=== PATIENT | female | born 2000 | race Caucasian/White ===

== ENCOUNTER 2025-03-18 01:19 | Day surgery (SDC) | payer OTHER, SELFPAY ==
[2025-03-10 15:18] VITALS: BMI 23.8
--- OUTSIDE RECORDS SUMMARY | 2025-03-18 01:22 | XMS_ITS | Referral Summary ---
Author Organization [facility] Address [address] [place] [address] Care Team Providers Care Pen Tester Name Role Phone Percy Sims MD Primary Care Prov ider Allergies No known active allergies Medications norethindrone-e.est radiol-iron (, ORAL) 9 Active ondansetron ODT (ZOFRAN-ODT) 4 mg disintegrating tabletIndications:Rina ibrahim,Gastroenterit is Take 1 tablet (4 mg total) by mouth every 6 (six) hours as needed for nausea or vomiting 20 tablet 1 1 Active Active Problems Problem Noted Date Diagnosed Date UTI (urinary tract infection) 10/09/2022 Assessment & Plan (10/09/2022 11:[address] OPENINGS INSPECTOR): Due to limitations with virtual visit physical assessment and labs deferred at this time. Pt was advised increase fluids, genital hygiene, and frequent voiding to assist with clearance of infection. Prescribed macrobid She was advised of side effects, dosage, and use of antibiotics. Will send prescription for macrobid to patient pharmacy. Instructed to patient on risk and benefits of medication. All red flags reviewed. Patient should follow up with PCP or report to ED for any worsening symptoms. Patient verbalized understanding and agreed to plan of care at this time. Dysmenorrhea 01/07/2019 Immunizations Immunization Administration Dates Next Due DTaP 01/22/2006, 1,03/18/2001,01/21 Hep A, Pediatric 05/05/2010,01/22/2006 Hep B / HiB 05/20/2001,01/21/2001 Hep B, Adolescent or Pediatric 2000 HiB 03/18/2001 IPV 01/22/2006, 1,03/18/2001,01/21 Influenza, Live, Intranasal, Quadrivalent 08/26/2013 Influenza, Quadrivalent, Spl it, Preservative Free, Intramuscular 07/10/2020,10/11/2019 MMR 01/22/2006,11/13/2001 Pneumococcal Conjugate 7-Valent 11/13/2001 Tdap 04/18/2012 Varicella 05/05/2010,11/13/2001 Social History Tobacco Use Types Packs/Day Years Used Date Smoking Tobacco: Never Smokeless Tobacco: Never Alcohol Use Standard Drinks/Week Comments Not Currently 0 (1 standard drink = 0.6 oz pur e alcohol) AUDIT-C Answer Date Recorded Q1: How often do you have a drink containing alc ohol? 2-4 times a month 04/02/2022 Q2: How many drinks containi ng alcohol do you have on a typical day when you are drinking? 3 or 4 04/02/2022 Q3: How often do you have si x or more drinks on one occasion? Never 04/02/2022 PHQ-2 Answer Date Recorded PHQ-2 Total Score (If total score is 3 or more points, staff should administer the PHQ-9) 0 09/12/2020 Personal Safety Answer Date Recorded Getting School Help Needed Not on file 11/13 Comments Unknown Sex and Gender Information Value Date Recorded Sex Assigned at Not on file Legal Sex Female 10:[address] OPENINGS INSPECTOR Gender Identity Not on file Sexual Orientation Not on file Last Filed Vital Signs Vital Sign Reading Time Taken Comments Blood Pressure 128/70 10/24/2022 9:[address] OPENINGS INSPECTOR Pulse 74 10/24/2022 9:[address] OPENINGS INSPECTOR Temperature 36.6 C (97.9 F) 10/24/2022 9:[address] OPENINGS INSPECTOR Respiratory Rate 14 10/24/2022 9:[address] OPENINGS INSPECTOR Oxygen Saturation 100% 10/24/2022 9:[address] OPENINGS INSPECTOR Inhaled Oxygen Concentration - - Weight 74.8 kg (165 lb) 10/24/2022 9:[address] OPENINGS INSPECTOR Height 182.9 cm (6') 10/24/2022 9:[address] OPENINGS INSPECTOR Body Mass Index 22.38 10/24/2022 9:[address] OPENINGS INSPECTOR Plan of Treatment Not on file Procedures Procedure Name Priority Date/Time Associated Diagnosis Comments HEPATITIS C ANTIBODY Routine 09/12/2020 1:50 PM CDT Annual physical exam from Last 3 Months or Most Recently Relevant to Health Maintenance Results * Hepatitis C antibody (09/12/2020 1:50 PM CDT) Hep C Ab Nonreactive Nonreactive [facility] Comment: Interpretive Data Nonreactive: Antibodies to HCV not detected. Does NOT exclude the possibility of recent exposure to HCV. Equivocal: Equivocal for HCV antibodies. Supplemental molecular testing will be automatically performed to determine infection status in accordance with current CDC screening recommendations. Reactive: Positive for HCV antibodies. This may represent current or past HCV infection. Supplemental molecular testing will be automatically performed to determine current infection status in accordance with current CDC screening recommendations. Interpretive data was last revised on 2020. Blood specimen (specimen) 09/12/2020 1:50 PM CDT 09/12/2020 3:22 PM CDT Percy Sims MD LAB MICROBIOLOGY - GENERAL ORDERABLES Final Result [facility] [address] Department [place] [address] from Last 3 Months or Most Recently Relevant to Health Maintenance Insurance [facility] [facility] PPO AETNA COVENTRY PPO [employer]ENTRY PPO [facility] Care Teams Pen Tester Relationship Specialty Start Date End Date Percy Sims MD PCP - General Family Medicine 09/12/20
--- OUTSIDE RECORDS SUMMARY | 2025-03-18 01:22 | XMS_ITS | Clinical Summary ---
Author Organization [facility] Address [address] [place] [address] Care Team Providers Care Vp Genetic Name Role Phone Francisco Grove MD Primary Care Provider [phone] Source Comments [facility] and Associated Physician Practices is amultiple site organization consisting of ambulatory clinics and hospital sitesin [place], [place], [place] and [place]. This disclosure is being madepursuant to the Care Everywhere program and may not contain all information available regarding this patient. Last updated 18.[facility] Social History Tobacco Use Types Packs/Day Years Used Date Smoking Tobacco: Never Assessed Comments Unknown Sex and Gender Information Value Date Recorded Sex Assigned at Not on file Legal Sex Female 10:22 AM CDT Gender Identity Not on file Sexual Orientation Not on file Plan of Treatment Upcoming Encounters Date Type Department Care Team (Late st Contact Info) Description 04/28/2025 11:00 AM CDT Office Visit [facility] [address], [address] [place] [address] Judi Griggs, [address] [place] [address] Health Maintenance Due Date Last Done Comments PAP SMEAR 2000 HIV SCREENING 2015 HPV VACCINE (1 - 3-dose series) 2015 CHLAMYDIA/GONORRHEA SCREENING 2016 HEPATITIS C SCREENING 11/03/2018 DTAP/TDAP/TD VACCINES (1 - Tdap) 2019 HEPATITIS B VACCINE (1 of 3 - 19+ 3-dose series) 2019 COVID-19 VACCINE (3 - 2023-2 5 season) 2024 03/01/2021, 02/08/2021 DEPRESSION SCREENING 11/18/2024 INFLUENZA VACCINE (Season Ended) 2025 07/10/2020, 10/11/2019, 08/26/2013 ZOSTER VACCINE (1 of 2) 2050 HIB VACCINE Aged Out No longer eligi ble based on patient's age to complete this topic MENINGOCOCCAL (Group B) VACCINE SHARED DECISION-MAKING Aged Out No longer eligible based on patient's age to complete this topic MENINGOCOCCAL GROUPS A/C/Y/W VACCINE Aged Out No longer eligible b ased on patient's age to complete this topic PNEUMOCOCCAL VACCINE Aged Out No long er eligible based on patient's age to complete this topic Care Teams Vp Genetic Relationship Specialty Start Date End Date Francisco Grove MD [address] [address] PCP - General Internal Medicine 12/31/24
--- OUTSIDE RECORDS SUMMARY | 2025-03-18 01:22 | XMS_ITS | Clinical Summary ---
Author Organization [address] Address [address] [place] [address] [place] [address] Care Team Providers Care Agronomy Technician Name Role Phone Nelia Cevallos MD Primary Care Provider [phone] Allergies No known active allergies Medications nystatin-triam cinolone (MYCOLOG) 100,000-0.1 unit/gram-% Ointment Apply to affected area 2 times daily. 60 Gram 4 Active buPROPion HCL (WELLBUTRIN XL) 150 mg Extended Release 24 hour tablet Take 150 mg by mouth daily in the morning. 4 Active escitalopram oxalate (LEXAPRO) 10 mg tablet TAKE 1 TABLET (10 MG) BY MOUTH DAILY. 90 Tablet 5 Active escitalopram oxalate (LEXAPRO) 10 mg tablet TAKE 1 TABLET (10 MG) BY MOUTH DAILY. 90 Tablet 4 025 Discontinued Active Problems Problem Noted Date Diagnosed Date Dysmenorrhea 01/07/2019 Encounters Date Type Department Care Team Description 03/02/2025 External Device Data ST[facility] ABSTRACTION Provider, Abstract 02/23/2025 Refill [facility] PRODUCT ANALYST - [address] [address] Nelia Cevallos MD 02/03/2025 External Device Data [facility] ABSTRACTION Provider, Abstract 02/03/2025 External Device Data [facility] ABSTRACTION Provider, Abstract 01/23/2025 External Device Data [facility] ABSTRACTION Provider, Abstract 01/22/2025 External Device Data [facility] ABSTRACTION Provider, Abstract 01/19/2025 External Device Data [facility] ABSTRACTION Provider, Abstract 01/05/2025 External Device Data [facility] ABSTRACTION Provider, Abstract from Last 3 Months Immunizations Immunization Administration Dates Next Due (TDVAX)(7 YRS UP) TETANUS AN D DIPHTHERIA TOXOIDS, ADSORBED (2 LF OF TETANUS TOXOID AND 2 LF OF DIPHTHERIA TOXOID), 0.5ML (PF), IM 06/06/2022 Family History Medical History Relation Name Comments Healthy Brother Healthy Father Healthy Mother Hypertension Paternal Grandmother Relation Name Status Comments Brother Alive Father Alive Mother Alive Paternal Grandmother Social History Tobacco Use Types Packs/Day Years Used Date Smoking Tobacco: Never Smokeless Tobacco: Never Tobacco Cessation:Counseling Given: Not Answered Alcohol Use Standard Drinks/Week Comments No 0 (1 standard drink = 0.6 oz pur e alcohol) Comments No Sex and Gender Information Value Date Recorded Sex Assigned at Not on file Legal Sex Female 10:04 PM CDT Gender Identity Not on file Sexual Orientation Not on file Last Filed Vital Signs Vital Sign Reading Time Taken Comments Blood Pressure 126/70 12/03/2024 11:14 AM HEALTH CARE CONSULTANT Pulse 69 12/03/2024 11:14 AM HEALTH CARE CONSULTANT Temperature 35.6 C (96 F) 12/03/2024 11:14 AM HEALTH CARE CONSULTANT Respiratory Rate - - Oxygen Saturation 99% 12/03/2024 11:14 AM HEALTH CARE CONSULTANT Inhaled Oxygen Concentration - - Weight 81.9 kg (180 lb 9.6 oz) 12/03/2024 11:14 AM HEALTH CARE CONSULTANT Height 182.9 cm (6') 12/03/2024 11:14 AM HEALTH CARE CONSULTANT Body Mass Index 24.49 12/03/2024 11:14 AM HEALTH CARE CONSULTANT Plan of Treatment Upcoming Encounters Date Type Department Care Team (Late st Contact Info) Description 12/06/2025 2:45 PM HEALTH CARE CONSULTANT Office Visit [facility] PRODUCT ANALYST - [address] [address] Nelia Cevallos MD [address] [address] Health Maintenance Due Date Last Done Comments HPV VACCINES (1 - 3-dose series) 2015 HPV/Cotest (21-29) 2021 INFLUENZA VACCINE (#1) 2024 , 07/10/2020, 10/11/2019, Additional history exists CERVICAL CANCER SCREENING 10/25/2025 PAP SMEAR 10/25/2025 10/25/2022 DTAP/TDAP/TD VACCINES (7 - T d or Tdap) 06/06/2032 06/06/2022, 04/18/2012, 01/22/2006, Additional history exists HEPATITIS B VACCINES Completed 05/20/2001, 01/21/2001, 2000 CHLAMYDIA SCREENING (ANNUAL) 11-24 YEARS Discontinued 08/03/2024, 01/09/2024, 11/27/2023, Additional history exists Preventative Visit- Commercial Completed 0 12/03/2024, 11/27/2023, 10/25/2022, Additional history exists Procedures Procedure Name Priority Date/Time Associated Diagnosis Comments VAGINOSIS/VAGINITI S PANEL PLUS Routine 08/03/2024 12:00 AM CDT Pelvic pain in female Vaginal discharge Irregular bleeding CERV/VAG CYTO AGE BASED SCREEN PAP W CT/NG, TRICH Routine 10/25/2022 2:05 PM HEALTH CARE CONSULTANT Well woman exam with routine gynecological exam Screening for HPV (human papillomavirus) Cervical cancer screening Screening examination for venereal disease from Last 3 Months or Most Recently Relevant to Health Maintenance Results * VAGINOSIS/VAGINITIS PANEL PLUS (08/03/2024 12:00 AM CDT) BACTERIAL VAGINOSIS NEGATIVE NEGATIVE [facility] AUGUSTA SPECIES NOT DETECTED NOT DETECTED [facility] AUGUSTA GLABRATA NOT DETECTED NOT DETECTED [facility] Comment: [place] species C. albicans, C. tropicalis, C. parapsilosis, and/or C. dubliniensis can be detected, but not differentiated, in the [place] spp. result. TRICHOMONAS VAGINALIS (TV), TMA NOT DETECTED NOT DETECTED [facility] CHLAMYDIA TRACHOMATIS RNA, TMA, UROGENITAL NOT DETECTED NOT DETECTED [facility] NEISSERIA GONORRHOEAE RNA, TMA, UROGENITAL NOT DETECTED NOT DETECTED [facility] Comment: For additional information, please refer to https://education.Jobzle/faq/IZS780 (This link is being provided for information/ educational purposes only.) Test Performed at: [facility] [id number] [facility] [place] [address] Orlando Cagle MD Genital SPECIMEN FROM VAGINA / Unknown 08/03/2024 08/03/2024 8:07 PM CDT us Dixie Kc NP MICROBIOLOGY - GENERAL ORDE FIDEL Final Result [facility] [phone] [facility] [id number] [facility] [place] [address] * CERV/VAG CYTO AGE BASED SCREEN PAP W CT/NG, TRICH (10/25/2022 2:05 PM HEALTH CARE CONSULTANT) COMMENT (PAP): [facility] Comment: This order for age-based cervical cancer and STI screening follows ACOG guidelines(PB 168, 140, FQJ579). See individual assays for performing site location. CLINICAL INFORMATION [facility] Comment:None given LAST MENSTRUAL PERIOD [facility] [place] Comment:NONE GIVEN PREV PAP: [facility] [place] Comment:NONE GIVEN PREV BX: [facility] [place] Comment:NONE GIVEN SOURCE [facility] [place] Comment:Endocervix ADEQUACY: [facility] [place] Comment: Satisfactory for evaluation. Endocervical/transformation zone component present. Age and/or menstrual status not provided PAP INTERP [facility] [place] Comment:Negative for intraep ithelial lesion or malignancy. COMMENT (PAP TEST) [facility] Comment: This Pap test has been evaluated with computer assisted technology. ANIMAL WARDEN: [facility] Comment: PCM, CT(ASCP) CT Screening Location: [place] [address] [place] [address] EXPLANATORY NOTE [facility] Comment: EXPLANATORY NOTE: The Pap is a screening test for cervical cancer. It is not a diagnostic test and is subject to false negative and false positive results. It is most reliable when a satisfactory sample, regularly obtained, is submitted with relevant clinical findings and history, and when the Pap result is evaluated along with historic and current clinical information. C TRAC RNA NOT DETECTED NOT DETECTED [facility] N.GONORRHOEAE RNA, TMA NOT DETECTED NOT DETECTED [facility] [place] COMMENT INFECTIOUS DISEASE [facility] Comment: The analytical performance characteristics of this assay, when used to test SurePath(TM) specimens have been determined by [facility]. The modifications have not been cleared or approved by the FDA. This assay has been validated pursuant to the CLIA regulations and is used for clinical purposes. For additional information, please refer to https://[employer].Jobzle/faq/LHQ306 (This link is being provided for information/ educational purposes only.) TRICHOMONAS VAGINALIS,QUALITAT ORALIA,PAP VIAL NOT DETECTED NOT DETECTED [facility] Comment: The analytical performance characteristics of this assay have been determined by [facility]. The modifications have not been cleared or approved by the FDA. This assay has been validated pursuant to the CLIA regulations and is used for clinical purposes. For additional information, please refer to http://[employer].Jobzle/ faq/Trichomonastma (This link is being provided for information/ educational purposes only.) Test Performed at: [facility] [id number] [place] [address] Will Lau D.O., MPH SL Genital SWAB OF ENDOCERVIX / Unknown 10/25/2022 2:05 PM HEALTH CARE CONSULTANT 10/26/2022 3:23 AM HEALTH CARE CONSULTANT us Dixie Kc NP PATHOLOGY/CYTOLOGY ORDERABL ES Final Result [facility] [phone] [employer] [address] [place] [address] from Last 3 Months or Most Recently Relevant to Health Maintenance Insurance [employer] [facility] [id number] RX PARIKH PLANS (INTERNAL) [facility] Care Teams Agronomy Technician Relationship Specialty Start Date End Date Nelia Cevallos MD PCP - General Obstetrics and Gynecology 01/08/19
--- OUTSIDE RECORDS SUMMARY | 2025-03-18 01:22 | XMS_ITS | Clinical Summary ---
Author Organization [facility] Address [address] [place] [address] Care Team Providers Care Job Superintendent Name Role Phone Unavailable Primary Care Provider Unavailabl e Medications No known medications Active Problems No known active problems Social History Tobacco Use Types Packs/Day Years Used Date Smoking Tobacco: Never Assessed Comments Unknown Sex and Gender Information Value Date Recorded Sex Assigned at Not on file Legal Sex Female 9:03 PM PDT Gender Identity Not on file Sexual Orientation Not on file Plan of Treatment Health Maintenance Due Date Last Done Comments Dental Oral Exam 12/02/2022 05/31/2022, 08/30/2020 Dental Prophylaxis 12/02/2022 05/31/2022, 08/30/2020 Dental X-Ray: Bitewings 12/02/2022 05/31/2022 Dental X-Ray: Full Mouth 06/01/2025 022, 04/08/2021, 08/30/2020 Dental X-Ray: Panoramic 06/01/2025 05/31/2022, 08/30 Meningococcal B Vaccine Aged Out No l onger eligible based on patient's age to complete this topic Procedures Procedure Name Priority Date/Time Associated Diagnosis Comments PROPHYLAXIS - ADULT Routine 05/31/2022 1 0:00 AM CDT NEW PATIENT PANO Routine 05/31/2022 9:00 AM CDT NEW PATIENT SPECIAL EXAM - ADULT Routine 05/31/2022 9:00 AM CDT INTRAORAL - COMPREHENSIVE SERIES OF RADIOGRAPHIC IMAGES Routine 08/30/2020 2:00 AM CDT from Last 3 Months or Most Recently Relevant to Health Maintenance Insurance [employer] PPO
--- OUTSIDE RECORDS SUMMARY | 2025-03-18 01:22 | XMS_ITS | Encounter Summary ---
Author Organization [facility] Address [address] [place] [address] Care Team Providers Care Police District Switchboard Operator Name Role Phone Unavailable Primary Care Provider Unavailabl e Prior Encounters Date Type Department Care Team Description 05/31/2022 10:00 AM CDT Office Visit [facility] [address] [place] [address] Saundra Ragsdale RDH 05/31/2022 Travel 05/31/2022 9:00 AM CDT Office Visit [facility] [address] [place] [address] Jon Piper DDS 12/07/2019 Converted CPS Chart Documents [facility] [place] [address] <No scans attached> 12/07/2019 Converted 13x Documents [facility] [address] [place] [address] <No scans attached> Plan of Treatment Not on file Procedures Procedure Name Priority Date/Time Associated Diagnosis Comments ORAL HYGIENE INSTRUCTIONS Routine 2021 10:00 AM CDT PROPHYLAXIS - ADULT Routine 05/31/2022 1 0:00 AM CDT NEW PATIENT PHOTO INTRA ORAL Routine 05/31/2022 9:00 AM CDT NEW PATIENT PHOTO INTRA ORAL Routine 05/31/2022 9:00 AM CDT NEW PATIENT PHOTO INTRA ORAL Routine 05/31/2022 9:00 AM CDT NEW PATIENT PHOTO INTRA ORAL Routine 05/31/2022 9:00 AM CDT NEW PATIENT SPECIAL EXAM - ADULT Routine 05/31/2022 9:00 AM CDT NEW PATIENT PANO Routine 05/31/2022 9:00 AM CDT MISSED APPOINTMENT Routine 03/27/2021 2: 00 AM CDT PROPHYLAXIS - ADULT Routine 08/30/2020 2 :00 AM CDT COMPREHENSIVE ORAL EVALUATION - NEW OR ESTABLISHED PATIENT Routine 08/30/2020 2:00 AM CDT PANORAMIC RADIOGRAPHIC IMAGE Routine 08/30/2020 2:00 AM CDT INTRAORAL - COMPREHENSIVE SERIES OF RADIOGRAPHIC IMAGES Routine 08/30/2020 2:00 AM CDT INTRAORAL PHOTO Routine 08/30/2020 2:00 AM CDT INTRAORAL PHOTO Routine 08/30/2020 2:00 AM CDT INTRAORAL PHOTO Routine 08/30/2020 2:00 AM CDT INTRAORAL PHOTO Routine 08/30/2020 2:00 AM CDT Visit Diagnoses Not on file Insurance NA O
--- OUTSIDE RECORDS SUMMARY | 2025-03-18 01:22 | XMS_ITS | Clinical Summary ---
Author Organization [facility] Address [address] [place] [address] Care Team Providers Care Entertainment Musician Name Role Phone Percy Sims MD Primary [...] 10/09/2022 Assessment & Plan (10/09/2022 11:44 AM INFORMATION TECHNOLOGY AUDIT MANAGER): Due to limitations with virtual visit physical [...] Conjugate 7-Valent 11/13/2001 Tdap 04/18/2012 Varicella 05/05/2010,11/13/2001 Medical History Medical History Date Comments Menstrual problem 12/02/2020 Family History Medical History Relation Name Comments Brain Aneurysm Maternal Grandfather Allergy (severe) Mother Zaira Chacon Brain Aneurysm Mother Zaira Chacon Relation Name Status Comments Father Alive Maternal Grandfather Maternal Grandmother Alive Mother Zaira Chacon Alive Paternal Grandfather Alive Paternal Grandmother Alive Social History Tobacco Use Types Packs/Day Years [...] on file Legal Sex Female 10:18 AM INFORMATION TECHNOLOGY AUDIT MANAGER Gender Identity Not on file Sexual Orientation Not on file Obstetrics History Last Filed Vital Signs Vital Sign Reading Time Taken Comments Blood Pressure 128/70 10/24/2022 9:33 PM INFORMATION TECHNOLOGY AUDIT MANAGER Pulse 74 10/24/2022 9:33 PM INFORMATION TECHNOLOGY AUDIT MANAGER Temperature 36.6 C (97.9 F) 10/24/2022 9:33 PM INFORMATION TECHNOLOGY AUDIT MANAGER Respiratory Rate 14 10/24/2022 9:33 PM INFORMATION TECHNOLOGY AUDIT MANAGER Oxygen Saturation 100% 10/24/2022 9:33 PM INFORMATION TECHNOLOGY AUDIT MANAGER Inhaled Oxygen Concentration - - Weight 74.8 kg (165 lb) 10/24/2022 9:33 PM INFORMATION TECHNOLOGY AUDIT MANAGER Height 182.9 cm (6') 10/24/2022 9:33 PM INFORMATION TECHNOLOGY AUDIT MANAGER Body Mass Index 22.38 10/24/2022 9:33 PM INFORMATION TECHNOLOGY AUDIT MANAGER Plan of Treatment Health Maintenance Due Date Last Done Comments Cervical Cancer Screening 2000 HPV Vaccines (1 - 3-dose series) 2015 Depression Screening 09/12/2021 09/12/2020 Regular Well Visit/Exam 18-64 08/28/2022 08/28/2021, 09/12/2020 Influenza Vaccine (#1) 2024 , 07/10/2020, 10/11/2019, Additional history exists DTaP/Tdap/Td Vaccine (7 - Td or Tdap) 06/06/2032 06/06/2022, 04/18/2012, 01/22/2006, Additional history exists Hepatitis B Screening Completed 05/20/2001 , 01/21/2001, 2000 Pneumococcal vaccine <65 Aged Out 11/13/2001 No longer eligible based on patient's age to complete this topic Varicella Vaccines Completed 05/05/2010, 11/13/2001 Hepatitis C Screening Completed 09/12/2020 Procedures Procedure Name Priority Date/Time Associated Diagnosis Comments HEPATITIS C ANTIBODY Routine 09/12/2020 1:50 PM CDT Annual physical exam from Last 3 Months or Most Recently Relevant to Health Maintenance Results * Hepatitis C antibody (09/12/2020 1:50 PM CDT) Hep C Ab Nonreactive Nonreactive [facility] Comment: Interpretive Data Nonreactive: Antibodies to HCV [...] LAB MICROBIOLOGY - GENERAL ORDERABLES Final Result [facility] [address] Department of Laboratories [place], [place] [id number] from Last 3 Months or Most Recently Relevant to Health Maintenance [facility] [place] [id number] AETNA COVENTRY PPO [place] [id number] A[employer] COVENTRY PPO [place] [id number] Care Teams Entertainment Musician Relationship Specialty Start Date End Date Percy Sims MD PCP - General Family Medicine 09/12/20
[2025-03-18 13:13] VITALS: BP 113/69; PULSE 83; RESP 18; TEMP 36.3; O2SAT 99; BMI 24.2
[2025-03-18] MEDS: LACTATED RINGERS 1,000 ML 150 ML IV CONT (13:23)
--- NOTE | 2025-03-18 13:32 | P.PNAN_ITS ---
Anes - Initial Pre Proc Eval Procedure: Operation Date: 03/18/25 14:00 Proposed Procedures p Colonoscopy - Justin Patrick MD Date/Time: 03/18/25 13:32 Surgeon: Justin Patrick MD Pre Op Diagnosis: Lower abdominal pain, unspecified , Melena Patient Data Age: 24 Gender: F Height: 1.83 m Weight: 81.1 kg Last Vital Signs Temp 36.3 C L 03/18/25 13:13 Pulse 83 03/18/25 13:13 Resp 18 03/18/25 13:13 BP 113/69 03/18/25 13:13 Pulse Ox 99 03/18/25 13:13 O2 Del Method Room Air 03/18/25 13:13 Allergies Allergy/AdvReac Type Severity Reaction Status Date / Time No Known Allergies Allergy Verified 03/18/25 13:12 Home Medications ?Medication ?Instructions ?Recorded ?Confirmed ?Type bupropion HCl 150 mg 24 hr tablet, 150 mg PO QAM 01/11/25 03/18/25 History extended release (Wellbutrin XL) escitalopram oxalate 10 mg tablet 10 mg PO DAILY 01/11/25 03/18/25 History (Lexapro) Patient hx anesthesia problems: none Family hx anesthesia problems: none Results Review: All pre-operative results and documents have been reviewed as part of the pre- operative evaluation. [facility]LY [facility] Past Medical History Medical History (Updated 01/11/25 @ 16:56 by Kaykay Weir APRN) Anxiety Social History Social History (Updated 01/11/25 @ 14:57 by Rossy Roy MA) Smoking status: Never smoker Drinks per week: 2 Alcohol use details: socially Living arrangements: with family Spiritual care concerns: No Anes - Eval Final PreProcedure Day of Procedure 03/18/25 13:32 Patient weight: normal Heart: regular rate and rhythm Lungs: clear to auscultation and normal air movement Airway: Mallampati scale class II Neurological: alert and oriented Last oral intake: >/= 8 hours ASA classification: II Emergent: no Anesthetic plan: proceed Anesthesia type and monitoring: general GIVS and standard monitoring Results Review: All pre-operative results and documents have been reviewed as part of the pre- operative evaluation. Informed Consent: The patient's anesthetic plan and its attendant risks and benefits were discussed with the patient/family/POA. Questions were solicited and answers provided to the satisfaction of the patient/family/POA.
--- NOTE | 2025-03-18 13:57 | PM.HPGS ---
History of Present Illness History of Present Illness Consent: Risks, benefits, and alternatives have been discussed and questions answered. Patient agrees to proceed with procedure. Chief complaint: Lower abdominal pain, unspecified , Melena Narrative: Adrienne Arellano is a 24 year old female with intermittent blood in stool, never had colonoscopy Review of Systems Review of Systems: All systems reviewed & are unremarkable except as noted in HPI and below PMFSH Past Medical History Medical History (Updated 01/11/25 @ 16:56 by Kaykay Weir APRN) Anxiety Social History Social History (Updated 01/11/25 @ 14:57 by Rossy Roy MA) Smoking status: Never smoker Drinks per week: 2 Alcohol use details: socially Living arrangements: with family Spiritual care concerns: No Meds Home Medications and Allergies Home Medications ?Medication ?Instructions ?Recorded ?Confirmed ?Type bupropion HCl 150 mg 24 hr tablet, 150 mg PO QAM 01/11/25 03/18/25 History extended release (Wellbutrin XL) escitalopram oxalate 10 mg tablet 10 mg PO DAILY 01/11/25 03/18/25 History (Lexapro) Allergies Allergy/AdvReac Type Severity Reaction Status Date / Time No Known Allergies Allergy Verified 03/18/25 13:12 Vital Signs Vital Signs - 24 hr 03/18/25 13:13 Temperature 97.3 F L Pulse Rate 83 Respiratory Rate 18 Blood Pressure 113/69 Pulse Oximetry 99 Oxygen Delivery Room Air Exam Const: General: comfortable and no acute distress HENMT: Face/Nose/Sinus: Normal nares present Eyes: General: appearance normal, both eyes and all related structures Neck: Neck: no JVD Resp: Auscultation: clear to auscultation bilaterally Cardio: Rate: regular rate Rhythm: regular rhythm GI: Inspection: non-distended GI Palp: Yes Soft to palpation Skin: General skin exam: normal color Neuro: Speech: normal speech Extrem: General: normal to inspection Psych: Mental Status: mental status grossly normal Assessment and Plan Assessment and plan (1) Hematochezia: Code(s): K92.1 - Melena Status: Acute Assessment and Plan: colonoscopy (2) Lower abdominal pain: Code(s): R10.30 - Lower abdominal pain, unspecified Status: Acute
[2025-03-18 14:11] LABS: BEDSIDEPREGUCG Negative (Negative)
[2025-03-18 14:13] VITALS: BP 93/53; PULSE 70; RESP 17; O2SAT 99
[2025-03-18 14:23] VITALS: BP 96/54; PULSE 70; RESP 15; O2SAT 100
[2025-03-18 14:32] VITALS: BP 96/63; PULSE 77; RESP 15; O2SAT 99
== END 2025-03-18 14:44 | disposition home or self-care (01) ==
PROVIDERS: Referring Provider Nurse Practitioner Family; Visit Provider Internal Medicine Gastroenterology
PROC: 0DJD8ZZ Inspection of Lower Intestinal Tract, Via Natural or Artificial Opening Endoscopic (ICD-10-PCS; CPT 45378; principal; 2025-03-18 14:00)
DX: K92.1 Melena (principal); K63.5 Polyp of colon; K64.8 Other hemorrhoids
CPT/HCPCS: 45385; 88305; J2003; J2704; J7120